=== PATIENT | male | born 1940 | race African-American/Black ===

== ENCOUNTER 2019-04-07 09:13 | Inpatient (IN) | payer MEDICARE, OTHER ==
[~2019-04-07] VITALS: Ht 182.9 cm; Wt 84.5 kg
[~2019-04-07 09:13] MED LIST: AMLO5TAB4 PO; BENA40TA9 PO; BICA50TA48 PO; BRIM5DRO LEFTEYE; DORZ10DR9 LEFTEYE; FERR-43 PO; GLIM2TAB2 PO; INSU3INS6 SUBCUT
[2019-04-07 10:09] LABS: BASOPHILS % 0.1 % (0.0-2.0); EOSINOPHILS % 1.8 % (0.0-5.0); HEMATOCRIT. 32.8 % (42.0-52.0); HEMOGLOBIN. 10.6 g/dL (14.0-18.0); LYMPHOCYTES % 29.2 % (20.0-50.0); MEAN CORPUSCULAR VOLUME 92.6 fL (80.0-94.0); MEAN PLATELET VOLUME 9.3 fl (7.4-10.4); MONOCYTES % 11.9 % (2.0-8.0); PLATELET 188 x1000/uL (130-400); RED BLOOD CELL COUNT 3.54 mill/uL (4.7-6.1); RED CELL DISTRIBUTION WIDTH 14.1 % (11.6-14.6)
[2019-04-07 10:15] LABS: CHLORIDE 117 mEq/L (98-107)
[2019-04-07 10:16] LABS: INR 0.9; PROTHROMBIN TIME 9.2 sec (9.6-11.0)
[2019-04-07] MEDS ORDERED: SODIUM CHLORIDE 0.9% 1,000 ML IV ONE (10:56)
[2019-04-07] MEDS ORDERED: MEROPENEM 1,000 MG in SODIUM CHLORIDE 0.9% 100 ML IV ONE (11:15)
[2019-04-07] MEDS ORDERED: VANCOMYCIN 1 G PREMIX 200 ML IV ONE (11:15)
[2019-04-07 11:19] LABS: CLARITY URINE CLEAR (CLEAR); COLOR URINE YELLOW (YELLOW); KETONES URINE NEGATIVE (NEGATIVE); LEUKOCYTE ESTERASE URINE NEGATIVE (NEGATIVE); NITRITE URINE NEGATIVE (NEGATIVE); OCCULT BLOOD URINE NEGATIVE (NEGATIVE); PH URINE 5.5 (4.5-8.0); PROTEIN URINE 2+ (NEGATIVE); SPECIFIC GRAVITY URINE 1.018 (1.005-1.030); UROBILINOGEN URINE 0.2 E.U./dL (0.2-1.0)
[2019-04-07] MEDS ORDERED: TRAMADOL 50MG TABLET PO PRN (12:00)
[2019-04-07] MEDS ORDERED: IPRATROPIUM/ALBUTEROL 0.5-3(2.5)MG/3ML NEB INH PRN (12:00)
[2019-04-07] MEDS ORDERED: GUAIFENESIN 200MG/10ML SUGAR FREE UDC PO PRN (12:00)
[2019-04-07] MEDS ORDERED: NITROGLYCERIN 0.4MG TABLET SL SL PRN (12:00)
[2019-04-07] MEDS ORDERED: DEXTROSE 50% WATER 50ML SYRINGE IV PRN (12:00)
[2019-04-07] MEDS ORDERED: MAGNESIUM/ALUMINUM HYDROXIDE/SIMETHICONE 30ML UDC PO PRN (12:00)
[2019-04-07] MEDS ORDERED: LEVOFLOXACIN 500MG PREMIX 100 ML IV SCH ×2 (12:00→14:00)
[2019-04-07] MEDS ORDERED: CLONIDINE 0.1MG TABLET PO PRN (12:00)
[2019-04-07] MEDS ORDERED: ONDANSETRON HCL 4MG/2ML INJ IV PRN (12:00)
[2019-04-07] MEDS ORDERED: DOCUSATE SODIUM 100MG CAPSULE PO PRN (12:00)
[2019-04-07] MEDS ORDERED: ACETAMINOPHEN 325MG TABLET PO PRN (12:00)
[2019-04-07 12:39] LABS: T4 FREE 0.98 ng/dL (0.76-1.46)
[2019-04-07 13:22] LABS: FOLIC ACID (FOLATE) SERUM 7.3 ng/mL (>5.38)
[2019-04-07 14:04] LABS: *AMPHETAMINES SCREEN URINE NEGATIVE (NEGATIVE); *BARBITURATES SCREEN URINE NEGATIVE (NEGATIVE); *BENZODIAZEPINES SCREEN URINE NEGATIVE (NEGATIVE); *COCAINE SCREEN URINE NEGATIVE (NEGATIVE); CANNABINOID URINE SCREEN NEGATIVE (NEGATIVE); METHADONE URINE SCREEN NEGATIVE (NEGATIVE); OPIATES URINE SCREEN NEGATIVE (NEGATIVE); PHENCYCLIDINE URINE SCREEN NEGATIVE (NEGATIVE)
[2019-04-07 15:06] LABS: CREATINE KINASE MB FRACTION 11.2 ng/mL (0.5-3.6)
[2019-04-07 16:30] VITALS: BP 109/53
[2019-04-07] MEDS: BLOOD SUGAR DIAGNOSTIC STRIP TEST SCH ×2 (16:50→21:00)
[2019-04-07] MEDS ORDERED: SODIUM CHLORIDE 0.9% 1,000 ML IV SCH (17:00)
[2019-04-07] MEDS: INSULIN LISPRO 100 UNITS/ML SUBCUT SCH ×2 (17:20→21:00)
[2019-04-07] MEDS: FAMOTIDINE 20MG TABLET PO SCH (18:00)
[2019-04-07] MEDS ORDERED: CEFTRIAXONE 1 G PREMIX 50 ML IV SCH (18:00)
[2019-04-07 18:30] VITALS: BP 127/66
[2019-04-07 20:00] VITALS: BP 143/69
[2019-04-07] MEDS ORDERED: LEVOFLOXACIN 250MG PREMIX 50 ML IV SCH (20:00)
[2019-04-07] MEDS ORDERED: ZOLPIDEM TARTRATE 5MG TABLET PO PRN (21:00)
[2019-04-07] MEDS ORDERED: ENOXAPARIN 40MG/0.4ML SYR SUBCUT SCH (21:00)
[2019-04-07 22:00] VITALS: BP 138/65
[2019-04-07] MEDS: HYDRALAZINE HCL 50MG TABLET PO SCH (22:00)
[2019-04-07] MEDS: ASCORBIC ACID 500 MG TABLET PO SCH (22:31)
[2019-04-08] VITALS (12 sets, daily range): BP systolic 108–152; BP diastolic 39–89
[2019-04-08 00:03] LABS: CREATINE KINASE MB FRACTION 9.1 ng/mL (0.5-3.6)
[2019-04-08] MEDS: HYDRALAZINE HCL 50MG TABLET PO SCH ×5 (01:02→21:14)
[2019-04-08] MEDS: CEFTRIAXONE 1 G PREMIX 50 ML IV SCH (01:08)
[2019-04-08 06:58] LABS: BASOPHILS % 0.3 % (0.0-2.0); EOSINOPHILS % 2.5 % (0.0-5.0); HEMATOCRIT. 31.2 % (42.0-52.0); LYMPHOCYTES % 30.2 % (20.0-50.0); MEAN CORPUSCULAR HEMOGLOBIN 29.6 pg (28.0-32.0); MEAN CORPUSCULAR VOLUME 92.6 fL (80.0-94.0); MEAN PLATELET VOLUME 9.8 fl (7.4-10.4); MONOCYTES % 11.4 % (2.0-8.0); NEUTROPHILS % 55.6 % (40.0-76.0); PLATELET 170 x1000/uL (130-400); RED BLOOD CELL COUNT 3.37 mill/uL (4.7-6.1); RED CELL DISTRIBUTION WIDTH 14.3 % (11.6-14.6)
[2019-04-08] MEDS: BLOOD SUGAR DIAGNOSTIC STRIP TEST SCH ×4 (07:18→21:00)
[2019-04-08] MEDS: INSULIN LISPRO 100 UNITS/ML SUBCUT SCH ×4 (07:20→21:14)
[2019-04-08 07:43] LABS: CHLORIDE 120 mEq/L (98-107)
[2019-04-08 07:57] LABS: PHOSPHORUS 3.9 mg/dL (2.5-4.9)
[2019-04-08] MEDS ORDERED: LEVOFLOXACIN 500MG PREMIX 100 ML IV NR (09:00)
[2019-04-08] MEDS ORDERED: ASPIRIN 325MG EC TABLET PO SCH (09:00)
[2019-04-08] MEDS ORDERED: ZINC SULFATE 220 MG ( 50 ) CAPSULE PO SCH (09:00)
[2019-04-08] MEDS: ASCORBIC ACID 500 MG TABLET PO SCH (09:27)
[2019-04-08] MEDS: AMLODIPINE 10MG TABLET PO SCH (09:27)
[2019-04-08] MEDS: DEXT 5%/0.45% NACL 1000ML 1,000 ML IV SCH ×2 (09:28→21:22)
[2019-04-08] MEDS ORDERED: SODIUM POLYSTYRENE SULFONATE 15 G/60 ML BOT PO NR (10:00)
[2019-04-08] MEDS: DEXAMETHASONE 4MG/ML 1ML VIAL IV SCH ×2 (14:13→17:00)
[2019-04-08] MEDS: FAMOTIDINE 20MG TABLET PO SCH (17:32)
[2019-04-09] VITALS (12 sets, daily range): BP systolic 91–150; BP diastolic 55–98
[2019-04-09] MEDS: CEFTRIAXONE 1 G PREMIX 50 ML IV SCH (00:02)
[2019-04-09] MEDS: DEXAMETHASONE 4MG/ML 1ML VIAL IV SCH ×4 (00:02→17:43)
[2019-04-09] MEDS: BLOOD SUGAR DIAGNOSTIC STRIP TEST SCH ×4 (06:32→21:00)
[2019-04-09] MEDS: HYDRALAZINE HCL 50MG TABLET PO SCH ×3 (06:32→22:17)
[2019-04-09 06:59] LABS: BASOPHILS % 0.2 % (0.0-2.0); LYMPHOCYTES % 13.6 % (20.0-50.0); MEAN CORPUSCULAR HEMOGLOBIN 29.7 pg (28.0-32.0); MEAN CORPUSCULAR VOLUME 92.3 fL (80.0-94.0); MEAN PLATELET VOLUME 10.4 fl (7.4-10.4); MONOCYTES % 2.2 % (2.0-8.0); PLATELET 177 x1000/uL (130-400); RED BLOOD CELL COUNT 3.36 mill/uL (4.7-6.1)
[2019-04-09 08:00] LABS: PHOSPHORUS 4.1 mg/dL (2.5-4.9)
[2019-04-09] MEDS: AMLODIPINE 10MG TABLET PO SCH (09:52)
[2019-04-09] MEDS: LEVOFLOXACIN 250MG PREMIX 50 ML IV SCH (09:52)
[2019-04-09] MEDS: INSULIN LISPRO 100 UNITS/ML SUBCUT SCH ×4 (09:54→22:18)
[2019-04-09] MEDS: SODIUM POLYSTYRENE SULFONATE 15 G/60 ML BOT PO SCH ×2 (09:54→12:07)
[2019-04-09] MEDS: DEXT 5%/0.45% NACL 1000ML 1,000 ML IV SCH (12:03)
[2019-04-09 13:15] LABS: *CREATININE RANDOM URINE 63.3 mg/dL (Not Estab.); MICROALBUMIN RANDOM URINE 606.5 ug/mL (Not Estab.)
[2019-04-09] MEDS: FAMOTIDINE 20MG TABLET PO SCH (17:43)
[2019-04-10] VITALS (10 sets, daily range): BP systolic 120–149; BP diastolic 69–89
[2019-04-10] MEDS: DEXT 5%/0.45% NACL 1000ML 1,000 ML IV SCH (00:23)
[2019-04-10] MEDS: DEXAMETHASONE 4MG/ML 1ML VIAL IV SCH ×3 (00:23→12:17)
[2019-04-10] MEDS: CEFTRIAXONE 1 G PREMIX 50 ML IV SCH (00:23)
[2019-04-10] MEDS: HYDRALAZINE HCL 50MG TABLET PO SCH ×2 (05:48→12:43)
[2019-04-10] MEDS: BLOOD SUGAR DIAGNOSTIC STRIP TEST SCH ×2 (06:05→11:12)
[2019-04-10 07:03] LABS: HEMATOCRIT. 29.7 % (42.0-52.0); HEMOGLOBIN. 9.6 g/dL (14.0-18.0); LYMPHOCYTES % 10.6 % (20.0-50.0); MEAN CORPUSCULAR HEMOGLOBIN 29.9 pg (28.0-32.0); MEAN CORPUSCULAR VOLUME 92.3 fL (80.0-94.0); MEAN PLATELET VOLUME 9.9 fl (7.4-10.4); NEUTROPHILS % 84.4 % (40.0-76.0); PLATELET 177 x1000/uL (130-400); RED BLOOD CELL COUNT 3.21 mill/uL (4.7-6.1); RED CELL DISTRIBUTION WIDTH 14.2 % (11.6-14.6)
[2019-04-10 07:36] LABS: PHOSPHORUS 4.3 mg/dL (2.5-4.9)
[2019-04-10] MEDS: AMLODIPINE 10MG TABLET PO SCH (08:01)
[2019-04-10] MEDS: INSULIN LISPRO 100 UNITS/ML SUBCUT SCH ×2 (08:04→12:18)
[2019-04-10] MEDS ORDERED: SODIUM CHLORIDE 0.45% 1,000 ML IV SCH (10:45)
[2019-04-10] MEDS: LEVOFLOXACIN 250MG PREMIX 50 ML IV SCH (11:12)
[2019-04-11] MEDS ORDERED: LEVOFLOXACIN 250MG TABLET PO SCH (11:00)
== END 2019-04-10 17:32 | disposition home health service (06) | DRG 871 ==
LOC: ER 09:13 → 3WST 11:37 → EDBEDREQ 11:40 → ENRESERV 13:23
PROVIDERS: ADMIT Internal Medicine; ATTEND Internal Medicine
DX: A41.9 Sepsis, unspecified organism (principal); G82.50 Quadriplegia, unspecified; N17.0 Acute kidney failure with tubular necrosis; E44.0 Moderate protein-calorie malnutrition; G95.20 Unspecified cord compression; E87.0 Hyperosmolality and hypernatremia; G95.89 Other specified diseases of spinal cord; C79.51 Secondary malignant neoplasm of bone; E87.5 Hyperkalemia; N18.3 Chronic kidney disease, stage 3 (moderate); H40.9 Unspecified glaucoma; E11.22 Type 2 diabetes mellitus with diabetic chronic kidney disease; C61 Malignant neoplasm of prostate; G35 Multiple sclerosis; T68.XXXA Hypothermia, initial encounter; D63.8 Anemia in other chronic diseases classified elsewhere; L97.529 Non-pressure chronic ulcer of other part of left foot with unspecified severity; I13.10 Hypertensive heart and chronic kidney disease without heart failure, with stage 1 through stage 4 chronic kidney disease, or unspecified chronic kidney disease; M48.02 Spinal stenosis, cervical region; M50.10 Cervical disc disorder with radiculopathy, unspecified cervical region; R00.1 Bradycardia, unspecified; E11.649 Type 2 diabetes mellitus with hypoglycemia without coma; Z91.81 History of falling; Z88.0 Allergy status to penicillin; Z87.19 Personal history of other diseases of the digestive system; Z79.4 Long term (current) use of insulin; Z79.899 Other long term (current) drug therapy; Z68.25 Body mass index [BMI] 25.0-25.9, adult; Z92.21 Personal history of antineoplastic chemotherapy
CPT/HCPCS: 36415; 70544; 70553; 71045; 72141; 76700; 80048; 80061; 80305; 82043; 82550; 82553; 82570; 82607; 82746; 82962; 83036; 83540; 83550; 83605; 83735; 84100; 84132; 84145; 84153; 84156; 84300; 84439; 84443; 84484; 93005; 93306; 93970; 96365; 96367; 97162; 99285; A6261; J0696; J1100; J1650; J1815; J1956; J2185; J3370; J7030; J7050; G0103